=== PATIENT | female | born 1960 | race Caucasian/White ===

== ENCOUNTER 2017-12-04 18:01 | Observation (INO) | payer BC, SELFPAY ==
[~2017-12-04 18:01] MED LIST: ISOVUE-370 76%-LOCM 1 ML ONE
[2017-12-04 18:41] LABS: Hemoglobin 11.4 g/dL (12.0-16.0); Mean Corpuscular HGB CONC 31.9 g/dL (32.0-36.0); Mean Corpuscular Volume 62.6 fl (81.0-99.0); Mean Platelet Volume 8.4 fL (7.4-10.4); Platelet Count 296 thou/uL (130-400); RBC Distribution Width 14.5 % (11.5-14.5); Red Blood Cell (RBC) Count 5.72 mill/uL (4.20-5.40); White Blood Cell (WBC) Count 11.1 thou/uL (4.8-10.8)
[2017-12-04 18:42] LABS: PTT 28.8 SEC (22.9-36.1)
[2017-12-04 18:59] LABS: ALT (SGPT) 23 U/L (8-55); AST (SGOT) 17 U/L (5-34); Albumin 4.3 g/dL (3.5-5.0); Alkaline Phosphatase 93 U/L (40-150); Anion Gap 14 mmol/L (10-20); BUN (Urea Nitrogen) 19 mg/dL (9.8-20.1); Bilirubin, Total 0.6 mg/dL (0.2-1.2); Calc. Creatinine Clearance 0 mL/min (70-130); Calcium 9.5 mg/dL (7.8-10.44); Carbon Dioxide 26 mmol/L (22-29); Chloride 102 mmol/L (98-107); Estimated GFR-MDRD 74; Glucose 96 mg/dL (70-105); Potassium 3.3 mmol/L (3.5-5.1); Protein, Total 7.3 g/dL (6.0-8.3); Sodium 139 mmol/L (136-145)
[2017-12-04 19:01] LABS: CKMB 0.9 ng/mL (0-6.6); Troponin I Less than 0.010 ng/mL (< 0.028)
[2017-12-04 19:05] LABS: #Basophils 0.1 thou/uL (0.0-0.2); #Eosinphils 0.2 thou/uL (0.0-0.7); #Monocytes 1.1 thou/uL (0.11-0.59); #Neutrophils 6.7 thou/uL (1.40-6.50); %Basophils 0.8 % (0.0-1.0); %Eosinophils 1.6 % (0.0-10.0); %Lymphocytes 27.4 % (21.0-51.0); %Monocytes 9.8 % (0.0-10.0); %Neutrophils 60.4 % (42.0-75.0)
[2017-12-04 19:06] LABS: Anisocytosis SLIGHT = 6-15 cells (100X) (0-5/hpf); Basophilic Stippling SLIGHT = 1-2 cells (100X) (None Seen); Hypochromia SLIGHT = 6-15 cells (100X) (0-5/hpf); MDiff Complete? YES; Microcytosis SLIGHT = 6-15 cells (100X) (0-5/hpf); Ovalocytes SLIGHT = 2-5 cells (100X) (0-1/hpf); PLT Morphology Comment Appears Adequate
--- NOTE | 2017-12-04 19:14 | CT ---
NONCONTRAST CT HEAD: 12/04/17 HISTORY: Left sided numbness and paresthesias in left face, arm and leg. Patient woke up this morning with a m igraine headache. COMPARISON: 10/01/15. FINDINGS: There is no evidence of a hemorrhage, acute infarction, mass effect, or midline shift. Ventricular sy stem is normal in size, shape and position. CT scan of the head is stable when compared to the prior exam in 2015. IMPRESSION: No acute cardiopulmonary process. POS: [facility]
[2017-12-04 19:23] LABS: Bilirubin Negative (Negative); Blood, Urine Negative (Negative); Clarity CLEAR (Clear); Glucose, Urine (Dipstick) Negative (Negative); Leukocyte Small (Negative); Nitrite Negative (Negative); Protein, Urine (Dipstick) Negative (Neg-Trace); pH, Urine 6.5 (5.0-9.0)
[2017-12-04 19:25] LABS: Bacteria/HPF None Seen HPF (None Seen); Hyaline Casts/LPF 7-10 HYALINE CAST LPF (0-3 Hyaline); Pathc Cast-AUWi Flag 0.67 (0-2.49); RBC/HPF 0-3 HPF (0-3); Squamous Epithelial 0-3 HPF (0-3)
[2017-12-04 19:26] LABS: Specific Gravity, Urine 1.053 (1.002-1.036)
[2017-12-04] MEDS ORDERED: Aspirin 325 MG TAB ONE (19:35)
--- NOTE | 2017-12-04 20:13 | CT ---
CT OF THE ABDOMEN AND PELVIS WITH IV CONTRAST 12/04/17 INDICATION: Left sided numbness and paresthesias in the face, arms and legs. Patient also has history of migraine headache. Patient has right red blood in her bowel movement this morning with severe low pelvic pain . COMPARISON: No CT comparisons are available. The lung bases are clear. There is fatty infiltration of the liver with area of focal hepatic sparring near the gallbladder fos sa. The pancreas, spleen, adrenal glands and kidneys appear within normal limits. No pathologically enlarged lymph nodes are seen within the abdomen. The colon demonstrates a mild amount of retained stool. No fluid levels seen to suggest the presence of diarrhea which would be expected in patient's with a lower GI bleed. Small bowel is of normal clara manuel. No free fluid is evident. The bladder, rectum, and perirectal soft tissues are unremarkable. The uterus is surgically absent. Scattered degenerative osteoarthritic change. There is a degenerative levoscoliosis of the lumbar spi ne. There is a bony hemangioma within T7. IMPRESSION: 1. No acute abnormality. 2. Fatty infiltration of the liver. 3. Hysterectomy. 4. Bony hemangioma within T7. POS: [facility]
--- NOTE | 2017-12-04 20:37 | RAD ---
PORTABLE AP CHEST X-RAY 12/04/17 HISTORY: Sensory deficits, left face numbness. COMPARISON: 04/01/17. FINDINGS: The cardiac silhouette and pulmonary vasculature are within normal limits for the portable technique of the study. The lungs are clear. There has been no interval change from prior study. IMPRESSION: No acute cardiopulmonary process. POS: [facility]
[2017-12-04 22:40] VITALS: BMI 47.4
[2017-12-04] MEDS ORDERED: Acetaminophen 325 MG TAB PO PRN (22:49)
[2017-12-04] MEDS ORDERED: Labetalol HCl 100 MG/20 ML VIAL SLOW IVP PRN (22:49)
[2017-12-04] MEDS ORDERED: HYDROcodone/Acetaminophen 5/325 mg Tablet PO PRN (22:49)
[2017-12-04] MEDS ORDERED: Ondansetron HCl/PF 4 MG/2 ML Vial IVP PRN (22:49)
[2017-12-04] MEDS ORDERED: HYDROcodone/Acetaminophen 10/325 mg Tablet PO PRN (22:49)
[2017-12-04] MEDS ORDERED: Atorvastatin Calcium 20 MG TAB PO SCH (23:00)
[2017-12-04 23:19] LABS: Hemoglobin 10.9 g/dL (12.0-16.0)
--- NOTE | 2017-12-04 23:24 | HP ---
PRIMARY CARE PHYSICIAN: Nguyễn Perez D.O. DATE OF ADMISSION: 12/04/2017 TIME OF SERVICE: 21:50. CHIEF COMPLAINT: Left face, arm and leg numbness. HISTORY OF PRESENT ILLNESS: Ms. Cruz is a pleasant 57-year-old obese white female with history of endometriosis remotely, ischemic colitis, hypertension, thalassemia minor and occasional migraines w ho woke up today with a migraine headache as typical for her. A couple of hours later between 9:30 a nd 10, she developed pins and needles starting on the left side of her face and then extending throug h the course of the next couple of hours into the day to her left arm and left leg. She said that by 4:00 p.m. today, she felt like her leg was asleep, but waking up. She still had sensation intact an d had a full strength, but it really had not gone away. She said it did extend down to her feet to i nclude her left second and third toes. Around 4:00 today, she had an episode of bright red blood per rectum today. She has not had that before. She has had some chronic low pelvic pain that she had w hen she was diagnosed with an ischemic colitis 3-4 years ago. She denies any lightheadedness or dizziness. No change in her vision, hearing, taste or smell. No c hange in mentation and no change in her strength. Per the ER notes, her mental status has been stabl e. She was subsequently admitted to our service. She had no further rectal bleeding since then. No fevers or chills, no chest pain or shortness of br eath, no palpitation. No nausea or vomiting. PAST MEDICAL HISTORY: 1. Endometriosis. 2. Status post hysterectomy. 3. Colon strokes x2, likely her ischemic colitis. 4. Hypertension, essential. 5. Depression. 6. Thalassemia minor. 7. Migraine headaches usually every 2-3 months. PAST SURGICAL HISTORY: 1. Bladder sling. 2. TAHBSO around year 1999. 3. x1. 4. Endometriosis surgery x2. HOME MEDICATIONS: 1. Lisinopril, dose unknown. 2. Tums as needed. ALLERGIES: NKDA. FAMILY HISTORY: Significant for strokes in maternal grandmother, maternal grandfather. Her mom had a clotted carotid artery about 20 years ago and she has a sister with history of deep venous thrombos is and pulmonary embolism. SOCIAL HISTORY: Negative for habits x3. She uses rare alcohol, but nothing to mention. REVIEW OF SYSTEMS: A 10-point review of systems was performed and was negative for all systems excep t as stated as per HPI. PHYSICAL EXAMINATION: VITAL SIGNS: Temperature is currently 98.4, pulse 93, blood pressure 174/90, respiratory rate 18, sa tting 96% on room air. GENERAL: She is awake. She is alert. She is oriented x3. She is an obese white female who appears to be in no acute distress. HEENT: She is normocephalic, atraumatic. Her pupils are equal, round and reactive to light bilatera lly. ENT: Mucous membranes are moist. There is no uvular deviation. She has no thrush. NECK: Supple, with no lymphadenopathy, no JVD, no thyromegaly. She has normal carotid upstroke with out delay. She has no carotid bruits. RESPIRATORY: Lungs clear to auscultation bilaterally. She has no wheezes, no rales, no rhonchi. LUNGS: Shows good air movement. Symmetrical chest excursion. There is no prolonged expiratory phas e. CARDIOVASCULAR: She has normal S1 and S2. There is no S3, S4. There are no murmurs. ABDOMEN: Obese. It is nontender, nondistended with good bowel sounds in all four quadrants. There is no rebound, rigidity or guarding. I cannot palpate internal organs due to body habitus. EXTREMITIES: No cyanosis, no clubbing, no edema. SKIN: Warm, moist, and well perfused. There is no rash or discoloration. There are no other lesion s. NEUROLOGIC: Cranial nerves II-XII are grossly intact. She has 5/5 strength in all 4 of her extremit ies. She has intact sensation to light touch and proprioception in both of her upper extremities. G rip strength is normal. She has no focal deficit. Normal speech pattern. MUSCULOSKELETAL: Normal to inspection. Shoulders, hips, elbows, knees, and ankles appear normal. S he has no inflammation and no palpable effusions. LABORATORY DATA: Sodium is 139, potassium 3.3, chloride 102, bicarb 26, BUN 19, creatinine 0.80, dina cium 9.5, and glucose 96. Liver functions are normal. CBC showed a white count of 11.1, hemoglobin is 11.4, hematocrit of 35.8 and platelet count was 200,0 00. She states that is a good hemoglobin for her due to her thalassemia. RADIOGRAPHIC STUDIES: 1. CT scan of the abdomen and pelvis was negative for acute disease. 2. CT scan of the brain was negative and chest x-ray showed no acute cardiopulmonary disease. ASSESSMENT AND PLAN: 1. Transient ischemic attack versus stroke. The patient has continued left arm and leg tingling. S he has no true numbness or paresthesias. No weakness. Her face is markedly improved from earlier to day, but there is still a little bit of pins and needles around the left edge of her mouth. At this time, we will get an MRI of the brain. We will also obtain MRI and carotid ultrasound. We will chec k about a morning fasting lipid profile. We will continue her on aspirin and add in some Lipitor. W e will ask speech therapy, occupational therapy, and physical therapy to evaluate. We will ask Neuro logy to evaluate as well. At this time, she has had no cardiac symptoms or arrhythmias. We did not get an echocardiogram yet. 2. Gastrointestinal prophylaxis. Place the patient on Pepcid b.i.d. 3. Deep venous thrombosis prophylaxis, placed on Lovenox once a day. 4. Hypertension, essential. Patient takes lisinopril daily. Her daughter will bring the medicine u p to get the actual dosing. In the meantime, we will use p.r.n. hydralazine to keep her pressure monique ewhere below 180. 5. Thalassemia minor. Currently, hemoglobin is 11.4. We will get serial H&Hs. 6. Bright red blood per rectum. Make her n.p.o. except for clear liquid diet. We will get serial H &Hs. We will ask GI to evaluate tomorrow. If she has any further bleeding or neurologic symptoms, s he was asked to let us know right away.
[2017-12-04] MEDS: Sodium Chloride 0.9% 1,000 ML IV SCH (23:49)
[2017-12-05 00:27] LABS: Troponin I Less than 0.010 ng/mL (< 0.028)
[2017-12-05 05:32] LABS: Hemoglobin 10.4 g/dL (12.0-16.0)
[2017-12-05 05:40] LABS: #Eosinphils 0.3 thou/uL (0.0-0.7); #Lymphocytes 2.7 thou/uL (1.20-3.40); #Monocytes 0.8 thou/uL (0.11-0.59); #Neutrophils 5.2 thou/uL (1.40-6.50); %Basophils 0.8 % (0.0-1.0); %Eosinophils 2.8 % (0.0-10.0); %Lymphocytes 30.2 % (21.0-51.0); %Neutrophils 57.2 % (42.0-75.0); Hemoglobin 10.4 g/dL (12.0-16.0); Mean Corpuscular HGB CONC 31.7 g/dL (32.0-36.0); Mean Corpuscular Volume 63.1 fl (81.0-99.0); Mean Platelet Volume 8.2 fL (7.4-10.4); Platelet Count 247 thou/uL (130-400); RBC Distribution Width 14.1 % (11.5-14.5); White Blood Cell (WBC) Count 9.1 thou/uL (4.8-10.8)
[2017-12-05 05:41] LABS: #Basophils 0.1 thou/uL (0.0-0.2)
[2017-12-05 06:23] LABS: Anion Gap 12 mmol/L (10-20); BUN (Urea Nitrogen) 15 mg/dL (9.8-20.1); Calc. Creatinine Clearance 153 mL/min (70-130); Carbon Dioxide 25 mmol/L (22-29); Cardiac Risk 4.9 (Less than 4.5); Chloride 105 mmol/L (98-107); Cholesterol 166 mg/dl (< 200 Desired); Estimated GFR-MDRD 84; Glucose 101 mg/dL (70-105); HDL Cholesterol 34 mg/dL (>60 Neg Risk); LDL Cholesterol, Calculated 116 mg/dL; Magnesium 2.2 mg/dL (1.6-2.6); Potassium 3.3 mmol/L (3.5-5.1); Sodium 139 mmol/L (136-145); Triglycerides 81 mg/dL (Less than 150)
[2017-12-05 07:22] LABS: Troponin I 0.011 ng/mL (< 0.028)
--- NOTE | 2017-12-05 07:51 | ULT ---
BILATERAL CAROTID DUPLEX ULTRASOUND: HISTORY: Left-sided tingling. TECHNIQUE: Schaefer scale ultrasound with color flow and spectral Doppler imaging of the extracranial carotid artery systems is performed bilaterally. FINDINGS: A small amount of plaque formation is seen, particularly on the right carotid bulb. The peak systolic velocity in the right ICA measures 45 cm/s with an end-diastolic velocity of 14 cm/ s and a systolic ratio of 0.77. The peak systolic velocity in the left ICA measures 59 cm/s with an end-diastolic velocity of 23 cm/s and a systolic ratio of 0.78. Flow in both vertebral arteries remains antegrade. IMPRESSION: No evidence of hemodynamically significant stenosis. POS: [facility]
[2017-12-05] MEDS ORDERED: FLU VACC QS2017-18 36 mo. & older 0.5 ML SYRINGE IM ONE (09:00)
[2017-12-05] MEDS ORDERED: Famotidine/PF 20 mg/2ml Vial SLOW IVP SCH (09:00)
[2017-12-05] MEDS ORDERED: Aspirin 325 mg Enteric Coated Tablet PO SCH (09:00)
--- NOTE | 2017-12-05 10:15 | MRI ---
BRAIN MRI WITHOUT CONTRAST: Date: 12/05/17 HISTORY: Left-sided tingling, left-sided numbness. COMPARISON: None. TECHNIQUE: Brain MRI is performed without intravenous Gadolinium administration. Multisequential, multiplanar im aging is performed. FINDINGS: No hemorrhage on the axial gradient echo sequence. Calvarium has a normal marrow signal intensity. Midline brain parenchymal structures are unremarkable . No parenchymal mass, mass effect, or midline shift. Brain volume is age-appropriate. Cortical boss-wh ite matter differentiation is preserved. Ventricles and sulci are patent and symmetric. Minimal T2 and FLAIR white matter hyperintensities are likely due to chronic small vessel ischemic ch serjio. Central arterial flow-voids are maintained. Absent restricted diffusion. Probable complex sebaceous cyst in the left parietal scalp, near the vertex. Partially empty sella is noted. Adequate aeration of the sinuses and mastoid air cells. IMPRESSION: Absent restricted diffusion. No acute intracranial process. No acute infarct. POS: [facility]
--- NOTE | 2017-12-05 10:18 | MRI ---
MR ANGIOGRAM OF SALAMAT[place] OF MARY: Date: 12/05/17 HISTORY: Left-sided facial numbness and tingling. COMPARISON: None. TECHNIQUE: Axial 3D [id number] imaging of the minto of Mary is performed. Maximum intensity projection im ages are submitted for interpretation. FINDINGS: There is symmetric flow-related signal in the distal cervical and intracranial internal carotid arter ies. Anterior Circulation: There is symmetric flow-related signal in the A1 and M1 segments. Symmetric flow-related signal in th e proximal A2 segments and MCA branches. Distal cervical and intracranial vertebral arteries have appropriate flow-related signal. Limited barbara luation of both PICA artery origins. Both vertebral arteries supply a normal appearing basilar artery . There is appropriate flow-related signal. The left and right P1 segments have appropriate flow-related signal. No significant stenosis. IMPRESSION: Unremarkable MR angiogram of the minto of Mary. POS: [facility]
[2017-12-05] MEDS: Sodium Chloride 0.9% 1,000 ML IV SCH (11:21)
[2017-12-05 12:10] VITALS: BP 199/89; TEMP 98.8
--- NOTE | 2017-12-05 13:04 | CON ---
DATE OF CONSULTATION: 12/05/2017 CHIEF COMPLAINT: Left face, arm and leg numbness. HISTORY OF PRESENT ILLNESS: The patient is a 57-year-old lady who comes to the hospital with 2 events. She has prior history of ischemic colitis, hypertension , and thalassemia minor and she has not seen a motion picture commentator since her teenage years. She developed rectal bleeding yesterday from morning to about 4:00 p.m. and she developed face, arm, and leg numbness around 10:00 in the morning and it progressed and she currently feels like her symptoms have mostly resolved and she thinks the numbness on the left face and arm lasted about 24 hours. She no longer has any rectal bleeding either and she did not have any weakness or any double vision or dizziness or dysarthria associated with these symptoms. There is no history of headache or loss of consciousness. PREVIOUS MEDICAL HISTORY: She has had a hysterectomy following endometriosis number of years ago and she had 2 events of colon ischemia and last time they thought she had gynecological issue, but turned out. She had ischemic colitis which was diagnosed on colonoscopy a few days later. PAST MEDICAL HISTORY: The patient has depression, thalassemia minor, which never caused her any issues and migraine headaches. PREVIOUS SURGICAL HISTORY: Bladder sling surgery, hysterectomy, and prior surgeries for endometriosis. MEDICATIONS: She is on lisinopril and no other medications. ALLERGIES: No known drug allergies. FAMILY HISTORY: Positive for stroke in her grandmother, maternal grandmother and mother had a carotid blockage and her sister had blood clots in her legs and other areas as well including PE. SOCIAL HISTORY: Negative for any health problems and she rarely uses alcohol and she retired. REVIEW OF SYSTEMS: Hematologic: Positive for thalassemia minor and rectal bleeding. Pulmonary: Normal. Cardiac: Normal. Gastrointestinal: Positive for rectal bleeding. Genitourinary: Normal. Neurologic: Positive for stroke- like symptoms during this admission. Dermatologic: Normal. LABORATORY DATA AND IMAGING DATA: Her laboratory workup was reviewed and hemoglobin is 10.4, hematocrit 32.6, and her chemistries were also within normal limits except for slightly low potassium and coagulation panel is normal. MRI and MRA is negative for acute ischemic event. PHYSICAL EXAMINATION: VITAL SIGNS: Her blood pressure was 199/89, temperature 98.8, pulse 83, respiratory rate 16, O2 sat 95%. GENERAL APPEARANCE: Well-built, well-nourished, very pleasant lady who is comfortable in her chair. CHEST: Clear vesicular breathing. CARDIOVASCULAR: S1 and S2 heard. No murmurs. ABDOMEN: Soft. NEUROLOGIC: Higher intellectual functions. Normal orientation to time, place, and person. Appropriate conversation. Cranial nerves 2, normal fundus examination. Cranial nerves 3, 4, 6, normal extraocular movement and normal sensation of face bilaterally. Tongue midline. No atrophy noted. Normal elevation of palate. Normal hearing bilaterally. Motor examination: Bulk normal, tone normal, strength 5/5 in upper extremities and lower extremities. Muscle groups tested are iliopsoas, hamstrings, quadriceps, ankle dorsiflexion, plantar flexion, deltoid, biceps, triceps, wrist extension and flexion, finger extension and flexion bilaterally. Deep tendon reflexes 1+ throughout in biceps , brachioradialis, triceps, knee jerks and ankle jerks bilaterally. Sensory: Normal touch, pinprick, proprioception, vibration, temperature and gait not tested. Cerebellar: Normal mbdffw-gs-rxoc and gcxu-hw-jiss. IMPRESSION: The patient is a 57-year-old lady who has sudden onset development of left face, arm and leg numbness in the setting of gastrointestinal bleed and she has no weakness involved. The patient has positive history of thalassemia minor and family history of stroke in her maternal grandparents and sister with multiple embolic events including DVT and pulmonary embolism and mother with carotid artery blockage. Her MRI scan of the brain today was negative for any acute ischemic event. MR angiogram was also negative for any blocked arteries and her carotid Doppler examination was normal. There was no hemodynamically significant stenosis. Echocardiogram is still pending. Her laboratory workup was reviewed and hemoglobin is 10.4, hematocrit 32.6, and her chemistries were also within normal limits except for slightly low potassium and coagulation panel is normal. Her neurological examination was normal and her symptoms have resolved 99% and she still has very mild residual left lip numbness. At this time, the diagnosis is most consistent with possible mild ischemic event not visible on MRI and this could also be due to hypovolemia and recent rectal bleeding. RECOMMENDATIONS: 1. Agree with current medications and she has been started on aspirin by the primary admitting team. 2. Please asked her to see her motion picture commentator for review and if there are any issues with her thalassemia minor and also in view of her sister having hypercoagulable state, that needs to be worked up as well, and this workup can be done as outpatient. Call me if you have any further questions. I will follow up with you if patient is still in the hospital tomorrow. CARYL
[2017-12-05] MEDS ORDERED: hydrALAZINE 20 MG/ML VIAL SLOW IVP PRN (14:55)
[2017-12-05 15:05] LABS: Hemoglobin 10.6 g/dL (12.0-16.0)
[2017-12-05 15:30] LABS: Troponin I Less than 0.010 ng/mL (< 0.028)
[2017-12-05] MEDS ORDERED: Carvedilol 6.25 MG TAB PO SCH (15:30)
--- NOTE | 2017-12-05 15:45 | PDOC.PN ---
- Subjective Encounter Start Date: 12/05/17 Encounter Start Time: 15:43 Ms. Cruz was seen today in follow-up. She is feeling much better. The symptoms of numbness in her face and arm have resolved. She says she has not had any rectal bleeding since last night, and the lower abdominal pain and cramping has gone away. - Objective Resuscitation Status: Resuscitation Status FULL:Full Resuscitation MAR Reviewed: Yes Vital Signs & Weight: Vital Signs (12 hours) Temp Pulse Pulse Pulse Resp BP BP 12/05/17 12:25 83 12/05/17 12:00 98.8 F 83 16 12/05/17 10:00 77 84 189/84 H 175/83 H 12/05/17 08:57 72 80 181/84 H 167/82 H 12/05/17 08:30 98.1 F 80 16 12/05/17 04:03 98.1 F 80 16 BP BP BP Pulse Ox 12/05/17 12:25 12/05/17 12:00 199/89 H 95 12/05/17 10:00 12/05/17 08:57 12/05/17 08:30 12/05/17 04:03 152/81 H 149/79 H 170/69 H 99 Weight Weight 242 lb 11.2 oz I&O: 12/04/17 12/05/17 12/06/17 06:59 06:59 06:59 Intake Total 1281 Balance 1281 Result Diagrams: 12/05/17 14:55 12/05/17 04:32 Phys Exam - Physical Examination HEENT: PERRLA Respiratory: no wheezing, no rales, no rhonchi, clear to auscultation bilateral Cardiovascular: RRR, no significant murmur, no rub Gastrointestinal: soft, non-tender, positive bowel sounds Musculoskeletal: no edema Dx/Plan (1) Head ache Code(s): R51 - HEADACHE Status: Acute (2) Rectal bleed Code(s): K62.5 - HEMORRHAGE OF ANUS AND RECTUM Status: Acute (3) Hypertension Code(s): I10 - ESSENTIAL (PRIMARY) HYPERTENSION Status: Acute (4) Thalassemia Code(s): D56.9 - THALASSEMIA, UNSPECIFIED Status: Acute - Plan * Headache and left facial and left sided numbness- She has been evaluated by Neurology and she is clinically stable. MRI results are noted * HTN - blood pressure is elevated- but she has not been started on her home medications until recently * Rectal Bleed - this can be evaluated as an outpatient ( She has seen Dr. Karimi at [facility] before)..
--- NOTE | 2017-12-05 17:47 | DIS ---
DATE OF ADMISSION: 12/04/2017 DATE OF DISCHARGE: 12/05/2017 PRIMARY CARE PHYSICIAN: Nguyễn Perez D.O. DISCHARGE DISPOSITION: Home. PRIMARY DISCHARGE DIAGNOSES: 1. Left arm and leg as well as face numbness, possible transient ischemic attack. 2. Hypertension, uncontrolled. 3. History of thalassemia minor. 4. Depression. 5. History of migraine headaches. 6. Endometriosis. DISCHARGE MEDICATIONS: Include paroxetine 20 mg daily, Nitrostat 0.4 sublingual p.r.n., lisinopril/h ydrochlorothiazide 20/12.5 two tablets daily. It is unclear whether she takes it twice a day or 2 ta blets all at one time. [place] 7.5/325 q.4 hours as needed, carvedilol 6.25 mg twice daily and Ecotrin 81 mg daily. PROCEDURES DONE DURING ADMISSION: The patient had a CT scan of the abdomen and pelvis, which was ess entially negative. There was evidence of some fatty liver as well as she has had hysterectomy. The patient had an MRI of the brain, which was negative for cerebrovascular accident and also had a MR an giogram of the brain, which was negative for any evidence of aneurysm. CODE STATUS: Full code. ALLERGIES: No known drug allergies. HOSPITAL COURSE: Ms. Cruz is a pleasant 57-year-old female who presented to the emergency room wi th complaints of headache as well as left arm, leg and facial numbness and tingling. Her symptoms re solved during her hospital stay. MRI of the brain as well as MR angiogram were negative as well as a CT scan of the brain. She was seen by Neurology and it was felt that there was no need for any sign ificant change in medications. I did explain to her that she may want to have an x-ray of her cervic al spine or MRI as cervical radiculopathy can mimic her symptoms. She will also need to have close b lood pressure monitoring as well. She also had complained of some cramping abdominal pain in the low er pelvic area as well as some rectal bleeding. This actually resolved during her hospital stay as w ell. Her H and H remained stable and there is no evidence of any active bleeding. She has seen Dr. Lang, a print room worker before at [facility] and had a colonoscopy done previously and since she is not showing signs of bleeding at this time, this can be dealt with in the outpatient setting. I did reinforce to her that she does need to see about this fairly urgently within the next few wee ks.
[2017-12-05] MEDS ORDERED: Lisinopril/Hydrochlorothiazide 20 mg/12.5 mg Tablet PO SCH (21:00)
[2017-12-05] MEDS ORDERED: Atorvastatin Calcium 20 MG TAB PO SCH (21:00)
[2017-12-06] MEDS ORDERED: Carvedilol 6.25 MG TAB PO SCH (08:00)
[2017-12-06] MEDS ORDERED: PARoxetine 20 MG TAB PO SCH (09:00)
== END 2017-12-05 17:32 | disposition home or self-care (01) ==
LOC: ERS 18:01 → INTOOBSV 19:40 → 2SE 19:40
PROVIDERS: ADMIT Internal Medicine; ATTEND Internal Medicine
DX: R20.0 Anesthesia of skin (principal); I10 Essential (primary) hypertension; D56.3 Thalassemia minor; F32.9 Major depressive disorder, single episode, unspecified; G43.909 Migraine, unspecified, not intractable, without status migrainosus; K76.0 Fatty (change of) liver, not elsewhere classified; K62.5 Hemorrhage of anus and rectum; E66.9 Obesity, unspecified; Z68.42 Body mass index [BMI] 45.0-49.9, adult; Z82.3 Family history of stroke; Z79.899 Other long term (current) drug therapy; Z90.710 Acquired absence of both cervix and uterus; Z90.722 Acquired absence of ovaries, bilateral; Z98.890 Other specified postprocedural states
CPT/HCPCS: 36415; 70450; 70544; 70551; 71045; 74177; 80048; 80053; 80061; 81003; 81015; 82553; 83735; 84484; 85025; 85060; 85610; 85730; 86850; 86900; 86901; 90471; 90682; 93005; 93880; 96374; 96375; G0008; G0378; G8978-GP-CJ; G8979-GP-CJ; G8980-GP-CJ; G8987-GO-CI; G8988-GO-CI; G8989-GO-CI; G8999-GN-CH; G9158-GN-CH; G9186-GN-CH; J0696; Q2036; S0028

== ENCOUNTER 2019-11-23 10:32 | Outpatient (CLI) | payer BC ==
--- NOTE | 2019-11-23 11:42 | MRI ---
MR the lumbar spine without contrast INDICATION: Right-sided lumbar radiculopathy COMPARISON: Lumbar spinal radiograph dated November 10, 2019 TECHNIQUE: Multiplanar multisequence MR images were obtained of lumbar spine without IV contrast. FINDINGS: Bone marrow: There is a bony hemangioma within L4. Distal spinal cord and conus: Normal. The conus seen to terminate at L1. Visualized retroperitoneum and paraspinal soft tissues: Normal. Vertebral levels: L5-S1: There is a broad-based disc osteophyte complex with facet hypertrophy inducing mild left neura l foraminal narrowing. L4-5: There is a broad-based disc osteophyte complex with ligamentum flavum hypertrophy and facet hyp ertrophy inducing moderate to severe central canal narrowing with severe left and moderate right neural foraminal narrowing L3-4: There is a broad-based disc osteophyte complex with facet hypertrophy and ligament flavum hyper trophy inducing moderate central canal narrowing with moderate bilateral neural foraminal narrowing L2-3: There is a broad-based bulge with facet hypertrophy inducing moderate central canal narrowing w ith moderate to severe right and moderate left neural foraminal narrowing. L1-L2: There is a broad-based disc osteophyte complex inducing mild central canal narrowing. There is facet hypertrophy in addition to the disc osteophyte complex inducing moderate bilateral neural foraminal narrowing T12-L1: There is a broad-based disc osteophyte complex inducing mild central canal narrowing and mode rate bilateral neural foraminal narrowing T11-T12: There is a broad-based disc osteophyte complex inducing mild central canal narrowing with mo derate to severe left and moderate right neural foraminal narrowing. IMPRESSION: 1. Severe multilevel spondylosis with multilevel central canal or neural foraminal narrowing as detai led above.
== END 2019-11-23 10:33 | disposition home or self-care (01) ==
LOC: BICMRI 10:32
PROVIDERS: ATTEND Nurse Practitioner Family
DX: M47.26 Other spondylosis with radiculopathy, lumbar region (principal); M48.061 Spinal stenosis, lumbar region without neurogenic claudication; M48.07 Spinal stenosis, lumbosacral region; M48.04 Spinal stenosis, thoracic region; M48.05 Spinal stenosis, thoracolumbar region
CPT/HCPCS: 72148

== ENCOUNTER 2019-12-02 10:12 | Outpatient (CLI) | payer BC ==
--- NOTE | 2019-12-02 10:51 | RAD ---
Lumbar spine 4 views: 12/02/2019 COMPARISON: 11/10/2019 HISTORY: Low back pain, spinal stenosis FINDINGS: The lateral exam demonstrates multilevel lower lumbar spine facet hypertrophy, most promine nt at L3-4, L4-5, and L5-S1. Multilevel disc space narrowing with degenerative endplate change and anterior osteophyte formation noted within the imaged thoracic spine as well as within the lumbar spi ne, most prominent at L2-3, L3-4, and L4-5. The neutral lateral exam demonstrates no significant anterolisthesis or retrolisthesis. Posterior osteophyte noted at T12-L1, L1-2, L2-3, and L3-4. Flexio n and extension imaging demonstrates no significant anterolisthesis or retrolisthesis. No acute fracture. IMPRESSION: Prominent multilevel degenerative change within the lumbar spine as detailed above.
== END 2019-12-02 10:13 | disposition home or self-care (01) ==
LOC: TBSIIMAG 10:12
PROVIDERS: ATTEND Neurological Surgery
DX: M54.5 Low back pain (principal); M47.816 Spondylosis without myelopathy or radiculopathy, lumbar region
CPT/HCPCS: 72110

== ENCOUNTER 2019-12-07 07:26 | Emergency (ER) | payer BC ==
[2019-12-07 09:36] LABS: Bilirubin Negative (Negative); Blood, Urine Negative (Negative); Clarity Clear (Clear); Glucose, Urine (Dipstick) Normal (Negative); Leukocyte Negative Leu/uL (Negative); Nitrite Negative (Negative); Protein, Urine (Dipstick) Negative (Neg-Trace); Urobilinogen Normal mg/dL (Less than 2)
[2019-12-07] MEDS ORDERED: HYDROcodone/Acetaminophen 10/325 mg Tablet ONE (10:18)
[2019-12-07] MEDS ORDERED: Diazepam 5 MG TAB ONE (10:19)
== END 2019-12-07 12:56 | disposition home or self-care (01) ==
LOC: ERS 07:26
DX: M54.5 Low back pain (principal); I10 Essential (primary) hypertension; F32.9 Major depressive disorder, single episode, unspecified; Z79.899 Other long term (current) drug therapy
CPT/HCPCS: 81003; 99283

== ENCOUNTER 2020-03-16 07:01 | Outpatient (CLI) | payer BC, OTHER ==
[2020-03-16 14:03] LABS: Hemoglobin 11.2 g/dL (12.0-16.0); Mean Corpuscular HGB CONC 29.7 g/dL (32.0-36.0); Mean Corpuscular Hemoglobin 18.7 pg (27.0-31.0); Mean Corpuscular Volume 63.1 fL (78.0-98.0); Mean Platelet Volume 13.2 fL (7.4-10.4); Platelet Count 299 thou/uL (130-400); RBC Distribution Width 14.1 % (11.5-14.5); Red Blood Cell (RBC) Count 5.98 mill/uL (4.20-5.40); White Blood Cell (WBC) Count 10.4 thou/uL (4.8-10.8)
[2020-03-16 14:09] LABS: INR-International Normal Ratio 0.9; PTT 30.1 sec (22.9-36.1); Prothrombin Time 12.3 sec (12.0-14.7)
[2020-03-16 17:38] LABS: SARS-CoV-2 MS2 Positive; SARS-CoV-2 N Gene Negative; SARS-CoV-2 S Gene Negative; SARS-CoV-2 orf1ab Negative
== END 2020-03-16 07:02 | disposition home or self-care (01) ==
LOC: LABBT 07:01
PROVIDERS: ATTEND Neurological Surgery
DX: Z01.812 Encounter for preprocedural laboratory examination (principal); Z11.59 Encounter for screening for other viral diseases; M48.061 Spinal stenosis, lumbar region without neurogenic claudication
CPT/HCPCS: 85027; 85610; 85730; 87635; U0003

== ENCOUNTER 2020-03-21 05:37 | Inpatient (IN) | payer BC ==
[2020-03-16 11:38] VITALS: BMI 50.1
[2020-03-21] MEDS ORDERED: Thrombin 5000 UNITS/5 ML VIAL ONE (06:20)
[2020-03-21] MEDS ORDERED: Fentanyl 250 MCG/5 ML VIAL ONE (06:39)
[2020-03-21] MEDS ORDERED: Ketamine 50 MG/ML (10ML VIAL) ONE (06:39)
[2020-03-21] MEDS ORDERED: Midazolam HCl 2 mg/2 ml Vial ONE (06:39)
[2020-03-21] MEDS ORDERED: Bupivacaine PF 0.5% 30 ML VIAL ONE (06:52)
[2020-03-21] MEDS ORDERED: EPINEPHrine 1 MG/ML AMP ONE (06:52)
[2020-03-21] MEDS ORDERED: Mag-Al 1200 mg/1200 mg/30 ML UDCUP PO PRN (07:09)
[2020-03-21] MEDS ORDERED: Acetaminophen 325 MG TAB PO PRN (07:09)
[2020-03-21] MEDS ORDERED: diphenhydrAMINE 25 MG CAP PO PRN (07:09)
[2020-03-21] MEDS ORDERED: Morphine 2 MG/ML SYRINGE SLOW IVP PRN (07:09)
[2020-03-21] MEDS ORDERED: Promethazine 25 MG TAB PO PRN (07:09)
[2020-03-21] MEDS ORDERED: Acetaminophen/Codeine 30-300mg Tablet PO PRN (07:09)
[2020-03-21] MEDS ORDERED: Scopolamine 1.5 mg/72 hour Patch TD PRN (07:09)
[2020-03-21] MEDS ORDERED: Milk Of Magnesia 30 ML UDCUP PO PRN (07:09)
[2020-03-21] MEDS ORDERED: Ondansetron PF 4 MG/2 ML Vial IVP PRN (07:09)
[2020-03-21] MEDS ORDERED: Gabapentin 300 MG CAP PO PRN (07:14)
[2020-03-21] MEDS ORDERED: Famotidine/PF 20 mg/2ml Vial ONE (07:29)
[2020-03-21] MEDS ORDERED: Ondansetron HCl/PF 4 MG/2 ML Vial IVP PRN (09:54)
[2020-03-21] MEDS ORDERED: Morphine Sulfate 2 MG/ML SYRINGE SLOW IVP PRN (09:54)
[2020-03-21] MEDS ORDERED: Promethazine HCl 25 MG/ML VIAL IM PRN (09:54)
[2020-03-21] MEDS ORDERED: Meperidine HCl/PF 25 MG/ML VIAL SLOW IVP PRN (09:54)
[2020-03-21] MEDS ORDERED: HYDROmorphone 2 MG/ML VIAL SLOW IVP PRN (09:54)
[2020-03-21] MEDS ORDERED: PACU-Morphine 4MG/ML VIAL SLOW IVP PRN (09:54)
[2020-03-21] MEDS ORDERED: Ketorolac Tromethamine 30 MG/ML VIAL IVP PRN (09:54)
[2020-03-21] MEDS ORDERED: Fentanyl 100 MCG/2 ML VIAL ONE ×3 (09:59→11:03)
[2020-03-21] MEDS ORDERED: Ondansetron PF 4 MG/2 ML Vial ONE (12:26)
[2020-03-21] MEDS ORDERED: PROPOFOL 200 MG/20 ML VIAL ONE (12:26)
[2020-03-21] MEDS ORDERED: diphenhydrAMINE 50 MG/ML VIAL ONE (12:26)
[2020-03-21] MEDS ORDERED: Glycopyrrolate 0.2 MG/ML 5 ML SYRINGE ONE (12:26)
[2020-03-21] MEDS ORDERED: EPHEDRINE 25 MG/5 ML SYRINGE ONE (12:26)
[2020-03-21] MEDS ORDERED: Rocuronium Bromide 10 MG/ML (10ML VIAL) ONE (12:26)
[2020-03-21] MEDS ORDERED: Succinylcholine Chloride 20 MG/ML 10 ml SYRINGE FS ONE (12:26)
[2020-03-21] MEDS ORDERED: Dexamethasone 20 MG/5 ML VIAL ONE (12:26)
--- NOTE | 2020-03-21 12:40 | OP ---
DATE OF PROCEDURE: 03/21/2020 CD REACTOR OPERATOR HEAD: Chuy Platt PA-C. PREOPERATIVE INDICATION: Treat pain, prevent neurological deterioration. PREOPERATIVE DIAGNOSIS: Multilevel lumbar stenosis, severe at L2-L3, L3-L4, and L4-L5 with severe neurogenic claudication. POSTOPERATIVE DIAGNOSIS: Multilevel lumbar stenosis, severe at L2-L3, L3-L4, and L4-L5 with severe neurogenic claudication. OPERATIVE PROCEDURE: Decompressive laminectomy, medial facetectomy, foraminotomy at L2-L3, L3-L4, L4-L5. PREOPERATIVE MEDICATIONS: Ancef 2 g IV. DRAIN NUMBER: Zero. DRAIN TIME: None. DESCRIPTION OF PROCEDURE: The patient was brought to the operating room. General endotracheal anesthesia was induced. The patient was positioned prone on the Amaury frame with appropriate padding for the chest and hips. A lateral fluoro radiograph was used to plan our incision. The lumbar skin was sterilely prepped and draped. We opened the midline incision with a 10-blade knife, and we controlled bleeding with bipolar and monopolar cautery. We used monopolar cautery to dissect through subcutaneous tissues to the thoracodorsal fascia. We incised the fascia in the midline and we reflected the paraspinal muscles off the spinous process and the lamina of L2, L3, L4, and L5. Self-retaining retractor was placed. A lateral fluoro radiograph confirmed the levels upon which we were operating. We then used an Adson rongeur to remove the spinous processes from L2 to the top of L5. We thinned the laminae with our Leksell rongeurs and then for fashion our laminectomy down the midline with 3 and 4 mm Kerrison rongeurs. There was significant amount of lateral recess stenosis that needed to be decompressed with medial facetectomies undermining the lateral recesses with Kerrison rongeurs. We had to perform foraminotomies over the exiting nerve roots until a ball probe could leave the spinal canal through the foramen without impingement at around the L2, L3, L4, and L5 nerve roots. Once we had the lateral recesses and foramina well decompressed and there was no further dural impingement at all, we turned our attention to closure. We irrigated copiously with bacitracin irrigation. We infused local anesthetic in paraspinal muscles. We treated the wound with vancomycin powder and we closed in anatomic layers. We applied a sterile dressing. Job ID: [id number]
[2020-03-21] MEDS: CEFAZOLIN 2 GM in Premix Bag 1 BAG IVPB SCH ×2 (14:01→21:30)
[2020-03-21] MEDS: tiZANidine HCl 4 MG TAB PO PRN ×2 (14:01→20:08)
[2020-03-21] MEDS: Lisinopril/Hydrochlorothiazide 20 mg/12.5 mg Tablet PO SCH (14:01)
[2020-03-21] MEDS: traMADol HCl 50 MG TAB PO PRN ×2 (14:02→20:08)
[2020-03-21] MEDS: Sodium Chloride 0.9% 1,000 ML IV SCH ×2 (14:08→18:23)
[2020-03-21] MEDS: Aripiprazole 2 MG TAB PO SCH (15:24)
[2020-03-21] MEDS ORDERED: Amlodipine 10 MG TAB PO SCH ×2 (20:00→21:00)
[2020-03-21] MEDS ORDERED: Montelukast Sodium 10 mg Tablet PO SCH (21:00)
[2020-03-22] MEDS: Sodium Chloride 0.9% 1,000 ML IV SCH (02:30)
[2020-03-22] MEDS: traMADol HCl 50 MG TAB PO PRN (03:33)
[2020-03-22] MEDS: tiZANidine HCl 4 MG TAB PO PRN (03:33)
[2020-03-22] MEDS ORDERED: Tamsulosin HCl 0.4 MG CAP PO SCH (06:00)
--- NOTE | 2020-03-22 08:02 | PRG ---
DATE OF SERVICE: 03/22/2020 Ms. Cruz is one day out from decompressive laminectomy for severe neurogenic claudication. She has done well since surgery. Her vitals look stable and her neurological examination is reassuring. When she is safe for activities of daily living, she can be discharged as early as this afternoon. Job ID: [id number]
[2020-03-22] MEDS: Lisinopril/Hydrochlorothiazide 20 mg/12.5 mg Tablet PO SCH (08:59)
[2020-03-22] MEDS: Aripiprazole 2 MG TAB PO SCH (09:00)
[2020-03-22 09:39] LABS: #Basophils 0.1 thou/uL (0.0-0.2); #Eosinphils 0.1 thou/uL (0.0-0.7); #Lymphocytes 2.4 thou/uL (1.20-3.40); #Monocytes 1.3 thou/uL (0.11-0.59); #Neutrophils 12.9 thou/uL (1.40-6.50); %Basophils 0.3 % (0.0-1.0); %Eosinophils 0.4 % (0.0-10.0); %Lymphocytes 14.4 % (21.0-51.0); %Monocytes 7.8 % (0.0-10.0); %Neutrophils 77.1 % (42.0-75.0); Hemoglobin 8.9 g/dL (12.0-16.0); Mean Corpuscular HGB CONC 31.4 g/dL (32.0-36.0); Mean Corpuscular Hemoglobin 19.9 pg (27.0-31.0); Mean Corpuscular Volume 63.3 fL (78.0-98.0); Mean Platelet Volume 12.1 fL (7.4-10.4); Platelet Count 245 thou/uL (130-400); RBC Distribution Width 13.7 % (11.5-14.5); Red Blood Cell (RBC) Count 4.47 mill/uL (4.20-5.40); White Blood Cell (WBC) Count 16.7 thou/uL (4.8-10.8)
[2020-03-22 09:57] LABS: Anion Gap 9 mmol/L (10-20); BUN (Urea Nitrogen) 14 mg/dL (9.8-20.1); Calc. Creatinine Clearance 145 mL/min (70-130); Calcium 8.5 mg/dL (7.8-10.44); Carbon Dioxide 28 mmol/L (22-29); Chloride 105 mmol/L (98-107); Estimated GFR-MDRD 78; Glucose 148 mg/dL (70-105); Potassium 4.1 mmol/L (3.5-5.1); Sodium 138 mmol/L (136-145)
[2020-03-22 10:10] LABS: Band 5 % (5-11); Eosinophils 1 % (0-10); Lymphocytes 16 % (21-51); MDiff Complete? YES; Monocytes 7 % (0-10); Neutrophil 70 % (42-75); Platelet Morphology Comment Appears Adequate; Polychromasia SLIGHT = 2-3 cells (100X) (0-2/hpf)
[2020-03-22 11:38] VITALS: BP 107/61; TEMP 98.4
--- NOTE | 2020-03-22 13:18 | CON ---
DATE OF CONSULTATION: CHIEF COMPLAINT: Inpatient consult for medical management. HISTORY OF PRESENT ILLNESS: A 59-year-old female with history of hypertension, has undergone elective laminectomy yesterday. Postoperatively, hospitalist consulted for medical management. The patient had surgery during my exam this morning. Physical therapy at bedside. Per them, she is able to get up and walk around last evening and they are going to do the same this morning. She has no acute medical complaints this morning. The patient does have a history of hypertension, but no cardiac issues in the past and no history of stroke or hypercholesterolemia or diabetics. REVIEW OF SYSTEMS: 13-point review of systems reviewed with the patient briefly and they are negative. No recent fever, night sweats, chills, productive cough, chest pain, orthopnea, PND, or lower extremity edema. Currently, denies any nausea, vomiting, abdominal pain, constipation, or diarrhea though she did not have bowel movement this morning. Rest of the review of systems are negative. ALLERGIES: SHE HAS NO KNOWN DRUG ALLERGY. PAST MEDICAL HISTORY: 1. Hypertension and history of ischemic colon, but no surgical intervention. 2. and hysterectomy. SOCIAL HISTORY: Does not smoke or drink alcohol. FAMILY HISTORY: Father . Mother is quite healthy. MEDICATIONS: 1. Sertraline 25 mg at bedtime. 2. Omeprazole 20 mg daily. 3. Singulair 10 mg at bedtime. 4. Abilify 2 mg daily. 5. Neurontin 300 mg three times a day p.r.n. 6. Norvasc 10 mg. 7. Lisinopril/hydrochlorothiazide 20/12.5 one tablet daily. PHYSICAL EXAMINATION: VITAL SIGNS: Temperature 98.4, pulse 68, blood pressure is 107/61, saturating 94% on room air. GENERAL: The patient is alert, oriented. She appears well, not in any distress. Physical therapy at bedside planning for ambulation this morning. CARDIOVASCULAR: Regular rate and rhythm without murmurs, rubs, or gallops. LUNGS: Clear to auscultation bilaterally without wheezing, rales, or rhonchi. ABDOMEN: Soft, nontender, nondistended. Good bowel sounds. EXTREMITIES: Without any pitting edema. LABORATORY DATA: WBC 16.7, hemoglobin 8.9, platelets 245,000. Creatinine 0.76, blood glucose 148. Rest of the BMP panel are in the normal range. IMPRESSION AND PLAN: This is a 59-year-old female with a history of hypertension, undergone a laminectomy of L2 through L5. She is currently doing well. Her blood pressure seems to be quite in good range. She does have mild leukocytosis that is expected with postoperatively. We will follow one this afternoon and if she is stable and leukocytosis is in the downward trend, we will discharge her later in the evening or in the morning. It is up to the discretion of the neurosurgeon. It appears that she may be discharged today. If she is staying further, I will follow up with the white count in the morning. Otherwise, she is medically stable to go home later this evening. Thank you for the consult. Please call me if you have any questions. Job ID: [id number]
== END 2020-03-22 13:30 | disposition home or self-care (01) | DRG 517 ==
LOC: SURG A 05:37 → EDSTATUS 16:08
PROVIDERS: ADMIT Neurological Surgery; ATTEND Neurological Surgery
PROC: 01NB0ZZ Release Lumbar Nerve, Open Approach (ICD-10-PCS; principal; 2020-03-21)
DX: M48.062 Spinal stenosis, lumbar region with neurogenic claudication (principal); I10 Essential (primary) hypertension; J45.909 Unspecified asthma, uncomplicated; F32.9 Major depressive disorder, single episode, unspecified; Z79.899 Other long term (current) drug therapy; Z90.710 Acquired absence of both cervix and uterus; Z98.890 Other specified postprocedural states
CPT/HCPCS: 36415; 76000; 80048; 85025; J0171; J0690; J1100; J1200; J2250; J2405; J2704; J3010; J3370; S0020; S0028

== ENCOUNTER 2020-07-14 09:01 | Emergency (ER) | payer BC, OTHER ==
[2020-07-14] MEDS ORDERED: Ondansetron PF 4 MG/2 ML Vial ONE (09:51)
[2020-07-14] MEDS ORDERED: Morphine 4 MG/ML VIAL ONE (09:51)
[2020-07-14 09:52] LABS: Bacteria/HPF None Seen HPF (None Seen); Bilirubin Negative (Negative); Blood, Urine Negative (Negative); Clarity Clear (Clear); Glucose, Urine (Dipstick) Normal (Negative); Ketone, Urine Negative (Negative); Leukocyte 25 Leu/uL (Negative); Nitrite Negative (Negative); Protein, Urine (Dipstick) Negative (Neg-Trace); RBC/HPF 0-3 HPF (0-3); Specific Gravity, Urine 1.024 (1.002-1.036); Squamous Epithelial None Seen HPF (0-3); Urobilinogen Normal mg/dL (Less than 2)
[2020-07-14 09:58] LABS: Hemoglobin 11.3 g/dL (12.0-16.0); White Blood Cell (WBC) Count 11.5 thou/uL (4.8-10.8)
[2020-07-14 09:59] LABS: Mean Platelet Volume 9.8 fL (7.4-10.4); Platelet Count 304 thou/uL (130-400)
[2020-07-14 10:15] LABS: #Basophils 0.1 thou/uL (0.0-0.2); #Eosinphils 0.2 thou/uL (0.0-0.7); #Lymphocytes 2.1 thou/uL (1.20-3.40); #Monocytes 0.8 thou/uL (0.11-0.59); #Neutrophils 8.3 thou/uL (1.40-6.50); %Basophils 0.7 % (0.0-1.0); %Eosinophils 1.8 % (0.0-10.0); %Lymphocytes 18.3 % (21.0-51.0); %Monocytes 6.5 % (0.0-10.0); %Neutrophils 72.6 % (42.0-75.0); MDiff Complete? YES; Mean Corpuscular HGB CONC 31.3 g/dL (32.0-36.0); Mean Corpuscular Hemoglobin 19.4 pg (27.0-31.0); Mean Corpuscular Volume 62.1 fL (78.0-98.0); Microcytosis SLIGHT = 6-15 cells (100X) (0-5/hpf); Ovalocytes SLIGHT = 2-5 cells (100X) (0-1/hpf); RBC Distribution Width 15.5 % (11.5-14.5); Reflex for Review?? YES; Tear Drops SLIGHT = 2-5 cells (100X) (0-1/hpf)
[2020-07-14 10:18] LABS: ALT (SGPT) 19 U/L (8-55); AST (SGOT) 15 U/L (5-34); Albumin 4.2 g/dL (3.5-5.0); Alkaline Phosphatase 108 U/L (40-110); Anion Gap 15 mmol/L (10-20); BUN (Urea Nitrogen) 21 mg/dL (9.8-20.1); Bilirubin, Total 0.4 mg/dL (0.2-1.2); Calc. Creatinine Clearance 0 mL/min (70-130); Carbon Dioxide 22 mmol/L (22-29); Chloride 105 mmol/L (98-107); Estimated GFR-MDRD 77; Glucose 113 mg/dL (70-105); Lipase 10 U/L (8-78); Potassium 3.8 mmol/L (3.5-5.1); Protein, Total 7.2 g/dL (6.0-8.3); Sodium 138 mmol/L (136-145)
--- NOTE | 2020-07-14 10:25 | CT ---
CT OF THE ABDOMEN AND PELVIS WITH IV CONTRAST INDICATION: History of abdominal pain COMPARISON: December 04, 2017 FINDINGS: ABDOMEN: Lung bases: Clear Liver: Fatty liver Gallbladder: Normal appearing. Pancreas: Normal. Adrenal glands: Normal. Spleen: Normal. Kidneys and ureters: Normal. No hydronephrosis. Vasculature: There are mild vascular calcifications seen involving the visualized vasculature. Lymph nodes:No lymphadenopathy. Free fluid in abdomen:No free fluid is evident. PELVIS: Small and large bowel: Normal Appendix:Normal Bladder: Normal. Rectal and perirectal soft tissues:Normal. Reproductive structures: Surgically absent Free fluid in pelvis: No free fluid is evident. Lymphadenopathy pelvis: No lymphadenopathy is evident. Osseous structures: No acute osseous abnormality. No destructive osteolytic or osteoblastic lesion i s identified. There is scattered degenerative and osteoarthritic changes. Soft tissues:Normal. IMPRESSION: 1. No acute abnormality.
[2020-07-14] MEDS ORDERED: Iopamidol-370 76% 500 ML 1 ML ONE (11:32)
== END 2020-07-14 12:25 | disposition home or self-care (01) ==
LOC: ERS 09:01
DX: N39.0 Urinary tract infection, site not specified (principal); Z86.73 Personal history of transient ischemic attack (TIA), and cerebral infarction without residual deficits; I10 Essential (primary) hypertension; F32.9 Major depressive disorder, single episode, unspecified; Z79.899 Other long term (current) drug therapy
CPT/HCPCS: 74177; 80053; 81003; 81015; 83690; 85025; 85060; 87086; 96361; 96374; J2270; J2405; Q9967

== ENCOUNTER 2020-07-19 13:12 | Outpatient (CLI) | payer BC ==
--- NOTE | 2020-07-19 14:26 | RAD ---
XR Lumbar Spine 2 Or 3 View History: Back pain Comparison: Reference made to abdomen pelvis CT July 14, 2020 Findings: Laminectomy changes throughout the lumbar spine. No acute fracture Moderate posterior degenerative disc space height loss throughout the lumbar spine. Moderate facet ar thropathy L4/L5 and L5/S1. No malalignment. No significant listhesis. No abnormal translation with flexion or extension. Impression: No significant translation with flexion or extension.
== END 2020-07-19 13:13 | disposition home or self-care (01) ==
LOC: TBSIIMAG 13:12
PROVIDERS: ATTEND Neurological Surgery
DX: M54.9 Dorsalgia, unspecified (principal)
CPT/HCPCS: 72100

== ENCOUNTER 2020-07-24 10:24 | Outpatient (CLI) | payer BC ==
--- NOTE | 2020-07-24 12:15 | RAD ---
RIGHT HIP 2 VIEWS: Date: 07/24/2020 HISTORY: Arthralgia right hip. Hip pain. FINDINGS: Femoral head contour is normal. Joint space is preserved. No fracture or acute lesion. No significant degenerative change is apparent. IMPRESSION: Unremarkable right hip. No acute findings. POS: [facility]W
== END 2020-07-24 10:25 | disposition home or self-care (01) ==
LOC: BICRAD 10:24
PROVIDERS: ATTEND Family Medicine
DX: M25.551 Pain in right hip (principal)

== ENCOUNTER 2021-01-16 15:08 | Emergency (ER) | payer BC, SELFPAY ==
[2021-01-16 15:51] LABS: #Basophils 0.1 thou/uL (0.0-0.2); #Eosinphils 0.2 thou/uL (0.0-0.7); #Lymphocytes 2.5 thou/uL (1.20-3.40); #Monocytes 1.1 thou/uL (0.11-0.59); #Neutrophils 6.7 thou/uL (1.40-6.50); %Basophils 0.8 % (0.0-1.0); %Lymphocytes 23.4 % (21.0-51.0); %Monocytes 10.7 % (0.0-10.0); %Neutrophils 63.1 % (42.0-75.0); Hemoglobin 11.8 g/dL (12.0-16.0); Mean Corpuscular HGB CONC 32.4 g/dL (32.0-36.0); Mean Corpuscular Hemoglobin 19.8 pg (27.0-31.0); Mean Corpuscular Volume 61.2 fL (78.0-98.0); Mean Platelet Volume 8.9 fL (7.4-10.4); Platelet Count 299 thou/uL (130-400); RBC Distribution Width 15.1 % (11.5-14.5); Red Blood Cell (RBC) Count 5.98 mill/uL (4.20-5.40); White Blood Cell (WBC) Count 10.6 thou/uL (4.8-10.8)
[2021-01-16 16:04] LABS: ALT (SGPT) 20 U/L (8-55); AST (SGOT) 16 U/L (5-34); Albumin 4.2 g/dL (3.5-5.0); Alkaline Phosphatase 106 U/L (40-110); Anion Gap 13 mmol/L (10-20); BUN (Urea Nitrogen) 16 mg/dL (9.8-20.1); Bilirubin, Total 0.6 mg/dL (0.2-1.2); Calc. Creatinine Clearance 0 mL/min (70-130); Calcium 9.1 mg/dL (7.8-10.44); Carbon Dioxide 26 mmol/L (22-29); Chloride 105 mmol/L (98-107); Globulin 3.2 g/dL (2.4-3.5); Glucose 101 mg/dL (70-105); Potassium 3.5 mmol/L (3.5-5.1); Protein, Total 7.4 g/dL (6.0-8.3); Sodium 140 mmol/L (136-145)
[2021-01-16 16:20] LABS: Anisocytosis SLIGHT = 6-15 cells (100X) (0-5/hpf); Hypochromia SLIGHT = 6-15 cells (100X) (0-5/hpf); MDiff Complete? YES; Microcytosis MODERATE=15-30 cells (100X) (0-5/hpf); Ovalocytes SLIGHT = 2-5 cells (100X) (0-1/hpf); Platelet Morphology Comment Appears Adequate; Polychromasia SLIGHT = 2-3 cells (100X) (0-2/hpf); Reflex for Review?? NO; Target Cells SLIGHT = 2-5 cells (100X) (0-1/hpf); Tear Drops SLIGHT = 2-5 cells (100X) (0-1/hpf)
== END 2021-01-16 21:15 | disposition home or self-care (01) ==
LOC: ERS 15:08
DX: R06.09 Other forms of dyspnea (principal); I10 Essential (primary) hypertension; J18.9 Pneumonia, unspecified organism
CPT/HCPCS: 36415; 71046; 71275; 80053; 83880; 84484; 85025; 93005

== ENCOUNTER 2021-02-21 07:59 | Outpatient (CLI) | payer BC ==
[2021-02-21 13:46] LABS: SARS-CoV-2 PCR by NAA Not Detected (NotDetected)
== END 2021-02-21 08:00 | disposition home or self-care (01) ==
LOC: LABBT 07:59
PROVIDERS: ATTEND Internal Medicine
DX: Z01.812 Encounter for preprocedural laboratory examination (principal); Z86.010 Personal history of colon polyps; Z20.822 Contact with and (suspected) exposure to COVID-19
CPT/HCPCS: 87635; U0003; U0005

== ENCOUNTER 2021-02-26 08:17 | Day surgery (SDC) | payer BC ==
[2021-02-23 12:49] VITALS: BMI 48.8
[2021-02-26] MEDS ORDERED: PROPOFOL 200 MG/20 ML VIAL ONE (09:38)
== END 2021-02-26 11:20 | disposition home or self-care (01) ==
LOC: SDC 08:17
PROVIDERS: ATTEND Internal Medicine
PROC: 0DBL8ZZ Excision of Transverse Colon, Via Natural or Artificial Opening Endoscopic (ICD-10-PCS; principal; 2021-02-26)
PROC: 0DBK8ZZ Excision of Ascending Colon, Via Natural or Artificial Opening Endoscopic (ICD-10-PCS; principal; 2021-02-26)
DX: Z12.11 Encounter for screening for malignant neoplasm of colon (principal); D12.2 Benign neoplasm of ascending colon; K63.5 Polyp of colon; K62.89 Other specified diseases of anus and rectum; K64.8 Other hemorrhoids; K64.4 Residual hemorrhoidal skin tags; K21.9 Gastro-esophageal reflux disease without esophagitis; E78.00 Pure hypercholesterolemia, unspecified; Z86.010 Personal history of colon polyps; Z79.899 Other long term (current) drug therapy
CPT/HCPCS: 88305; J2704